=== PATIENT | male | born 1965 | race African-American/Black ===

== ENCOUNTER 2019-10-04 09:51 | Emergency (ER) | payer SELFPAY ==
[~2019-10-04] VITALS: Ht 188 cm; Wt 109.0 kg
[~2019-10-04 09:51] MED LIST: AMLO10TA8 PO; LISI-334 PO
[2019-10-04] MEDS ORDERED: ONDANSETRON PF 4 MG/2 ML VIAL. IVP ONE (10:30)
[2019-10-04] MEDS ORDERED: IV NORMAL SALINE 1000ML BAG 1,000 ML IV ONE ×3 (10:30→12:15)
[2019-10-04] MEDS ORDERED: ACETAMINOPHEN 500 MG TABLET PO ONE (10:30)
[2019-10-04 10:52] LABS: CALCIUM 8.7 mg/dL (8.5-10.1); CREATININE 1.4 mg/dL (0.7-1.3); GFR 63.9; POTASSIUM 3.3 mmol/L (3.5-5.1)
[2019-10-04 10:58] LABS: ALBUMIN 3.5 g/dL (3.4-5.0); ALBUMIN/GLOBULIN RATIO 0.7 (1.0-1.7); TOTAL PROTEIN 8.3 g/dL (6.4-8.2)
[2019-10-04 10:59] LABS: BASO % 0 % (0-3); EOS % 0 % (0-3); HEMATOCRIT 44.2 % (39.0-53.0); LYMPH # 0.7 x10^3/uL (1.0-4.8); LYMPH % 5 % (24-48); MEAN CORPUSCULAR HEMOGLOBIN 28 pg (25-35); MEAN CORPUSCULAR HGB CONC 34 g/dL (31-37); MEAN CORPUSCULAR VOLUME 84 fL (79-100); MONO # 1.6 x10^3/uL (0.0-1.1); MONO % 10 % (0-9); NEUT # 14.3 x10^3/uL (1.8-7.7); NEUT % 86 % (31-73); PLATELET COUNT 116 x10^3/uL (140-400); RED BLOOD COUNT 5.29 x10^6/uL (4.30-5.70); RED CELL DISTRIBUTION WIDTH 15.1 % (11.5-14.5); WHITE BLOOD COUNT 16.6 x10^3/uL (4.0-11.0)
[2019-10-04 11:45] LABS: % LYMPHS 11 % (24-48); % MONOS 8 % (0-10); % SEGS 81 % (35-66)
[2019-10-04 11:46] LABS: PLT ESTIMATE DECREASED (ADEQUATE)
[2019-10-04 12:15] LABS: BILIRUBIN,URINE SMALL (NEG); CLARITY,URINE CLEAR; COLOR,URINE AMBER; NITRITE,URINE NEGATIVE (NEG); PH,URINE 5.5 (<5.0-8.0); PROTEIN,URINE 100 mg/dL (NEG-TRACE)
[2019-10-04] MEDS ORDERED: IOHEXOL 300 MG/ML 100ML VIAL. IV ONE (12:15)
[2019-10-04] MEDS ORDERED: CONTRAST GIVEN. MC PRN (12:15)
[2019-10-04 12:22] LABS: AMORPHOUS SEDIMENT,UR PRESENT /HPF; BACTERIA,URINE 0 /HPF (0-FEW); HYALINE CASTS, URINE OCCASIONAL /HPF; RBC,URINE 0 /HPF (0-2); SQUAMOUS EPITHELIAL CELL,UR OCC /LPF
--- NOTE | 2019-10-04 12:42 | RAD ---
CT abdomen and pelvis with contrast History: Abdominal pain, nausea and vomiting, fever Technique: After the administration of intravenous contrast, CT imaging was performed of the abdomen and pelvis. No oral contrast was given. Multiplanar images are reviewed. Exposure: One or more of the following individualized dose reduction techniques were utilized for this examination: 1. Automated exposure control 2. Adjustment of the mA and/or kV according to patient size 3. Use of iterative reconstruction technique. Comparison: April 09, [address], no previous abdomen pelvis CT available Findings: Not completely evaluated, there is prominent infiltrate of the visualized right lower lobe abutting the pleural surface. There is trace right pleural fluid. There are splenic granulomas. There is small hypodense lesion of the left lobe of the liver about 0.7 cm not apparent on previous exam, density measurements more cystlike about 10 Hounsfield units on coronal images. There are a couple of other tiny hypodense foci of the right lobe of liver too small to accurately characterize. Gallbladder is present, nonspecific contracted appearance. There is no adrenal nodularity. Both kidneys enhance, no hydronephrosis. There is a small 0.6 cm hypodense lesion of the superior right kidney too small to further accurately characterize. There is nonspecific circumferential prominence of the urinary bladder muñiz. Accurate evaluation of bowel is limited without oral contrast. There is air-fluid level in the cecum. Appendix caliber is borderline about 0.6 cm, no significant adjacent inflammatory-type change. Impression: 1. There is prominent lung infiltrate of the visualized right lower lobe not fully evaluated, also trace right pleural fluid. 2. There is small likely cyst of the left lobe of liver. There are couple of other small hypodense foci of the liver and also small focus of the superior right kidney too small to further accurately characterize. 3. There is nonspecific prominence of urinary bladder muñiz, could be due to incomplete distention unless there is clinical suspicion for cystitis. Electronically signed by: Juan Harris MD (10/04/2019 12:39 PM) [id number]
--- NOTE | 2019-10-04 13:03 | RAD ---
EXAM: CHEST AP ONLY 10/04/2019 12:33 PM CLINICAL INDICATION:Fever COMPARISON:Chest radiograph 04/09/2015 TECHNIQUE:AP upright view of the chest FINDINGS:The heart and mediastinum are normal. Lungs are well-expanded clear. No pleural effusion or pneumothorax. No acute osseous abnormality. IMPRESSION:Normal chest radiograph. Electronically signed by: Soila Shaw MD (10/04/2019 1:00 PM) [id number]
[2019-10-04] MEDS ORDERED: cefTRIAXone IV Push 1 GM VIAL. IVP ONE (14:00)
[2019-10-04] MEDS ORDERED: CEFD300C PO (14:37)
[2019-10-04 14:38] VITALS: BP 198/98
--- NOTE | 2019-10-04 14:38 | PHYS DOC ---
Past Medical History Past Medical History: Hypertension Past Surgical History: No Surgical History Smoking Status: Former Smoker Alcohol Use: Occasionally Drug Use: None Social History Narrative: LAST USE THURSDAY General Adult EDM: Chief Complaint: NAUSEA/VOMITING/DIARRHA HPI: HPI: Patient is a 54 year old was brought here by EMS due to nausea, vomiting, diarrhea, abdominal cramping and headache since Thursday morning. Patient said he went to the [employer] on Thursday night, ate some chicken there, thought that he has food poisoning. He also developed a fever. He has some dry cough for several days, no chest pain, no shortness of air. Patient said the diarrhea slowed down but still feel cramping. Review of Systems: Review of Systems: Constitutional: Positive for fever or chills. [] Eyes: Denies change in visual acuity. [] HENT: Denies nasal congestion or sore throat. [] Respiratory: POSITIVE FOR cough, NO shortness of breath. [] Cardiovascular: Denies chest pain or edema. [] GI: POSITIVE FOR abdominal pain, nausea, vomiting, diarrhea. [] : Denies dysuria. [] Musculoskeletal: Denies back pain or joint pain. [] Integument: Denies rash. [] Neurologic: POSITIE FOR headache, NO focal weakness or sensory changes. [] Endocrine: Denies polyuria or polydipsia. [] Lymphatic: Denies swollen glands. [] Psychiatric: Denies depression or anxiety. [] Heart Score: Risk Factors: Risk Factors: DM, Current or recent (<one month) smoker, HTN, HLP, family history of CAD, obesity. Risk Scores: Score 0 - 3: 2.5% MACE over next 6 weeks - Discharge Home Score 4 - 6: 20.3% MACE over next 6 weeks - Admit for Clinical Observation Score 7 - 10: 72.7% MACE over next 6 weeks - Early Invasive Strategies Current Medications: Current Medications Medications (Trade) Dose Ordered Sig/Susu Start Time Stop Time Status Last Admin Dose Admin Acetaminophen (Tylenol) 1,000 mg 1X ONCE 10/04/19 10:30 10/04/19 10:33 DC 10/04/19 10:59 1,000 MG Ceftriaxone Sodium (Rocephin) 2 gm 1X ONCE 10/04/19 14:00 10/04/19 14:01 DC 10/04/19 13:55 2 GM Info (CONTRAST GIVEN -- Rx MONITORING) 1 each PRN DAILY PRN 10/04/19 12:15 10/06/19 12:14 Iohexol (Omnipaque 300 Mg/ml) 75 ml 1X ONCE 10/04/19 12:15 10/04/19 12:16 DC 10/04/19 12:07 75 ML Ondansetron HCl (Zofran) 4 mg 1X ONCE 10/04/19 10:30 10/04/19 10:31 DC 10/04/19 10:58 4 MG Sodium Chloride 1,000 ml @ 1,000 mls/hr 1X ONCE 10/04/19 12:15 10/04/19 13:14 DC Allergies: Allergies: Allergies Coded Allergies Type Severity Reaction Last Updated Verified ibuprofen Allergy Intermediate rash 04/09/15 Yes Physical Exam: PE: Constitutional: Well developed, well nourished, no acute distress, non-toxic appearance. [] HENT: Normocephalic, atraumatic, bilateral external ears normal, oropharynx moist, no oral exudates, nose normal. [] Eyes: PERRLA, EOMI, conjunctiva normal, no discharge. [] Neck: Normal range of motion, no tenderness, supple, no stridor. [] Cardiovascular:RAPID HEART rate regular rhythm, no murmur [] Lungs & Thorax: Bilateral breath sounds clear to auscultation [] Abdomen: Bowel sounds normal, soft, no tenderness, no masses, no pulsatile masses. [] Skin: Warm, dry, no erythema, no rash. [] Back: No tenderness, no CVA tenderness. [] Extremities: No tenderness, no cyanosis, no clubbing, ROM intact, no edema. [] Neurologic: Alert and oriented X 3, normal motor function, normal sensory function, no focal deficits noted. [] Psychologic: Affect normal, judgement normal, mood normal. [] Current Patient Data: Labs: Laboratory Tests Test 10/04/19 10:23 10/04/19 12:00 White Blood Count 16.6 x10^3/uL (4.0-11.0) H Red Blood Count 5.29 x10^6/uL (4.30-5.70) Hemoglobin 15.0 g/dL (13.0-17.5) Hematocrit 44.2 % (39.0-53.0) Mean Corpuscular Volume 84 fL (79-100) Mean Corpuscular Hemoglobin 28 pg (25-35) Mean Corpuscular Hemoglobin Concent 34 g/dL (31-37) Red Cell Distribution Width 15.1 % (11.5-14.5) H Platelet Count 116 x10^3/uL (140-400) L Neutrophils (%) (Auto) 86 % (31-73) H Lymphocytes (%) (Auto) 5 % (24-48) L Monocytes (%) (Auto) 10 % (0-9) H Eosinophils (%) (Auto) 0 % (0-3) Basophils (%) (Auto) 0 % (0-3) Neutrophils # (Auto) 14.3 x10^3/uL (1.8-7.7) H Lymphocytes # (Auto) 0.7 x10^3/uL (1.0-4.8) L Monocytes # (Auto) 1.6 x10^3/uL (0.0-1.1) H Eosinophils # (Auto) 0.0 x10^3/uL (0.0-0.7) Basophils # (Auto) 0.0 x10^3/uL (0.0-0.2) Segmented Neutrophils % 81 % (35-66) H Lymphocytes % 11 % (24-48) L Monocytes % 8 % (0-10) Platelet Estimate Decreased (ADEQUATE) Sodium Level 131 mmol/L (136-145) L Potassium Level 3.3 mmol/L (3.5-5.1) L Chloride Level 96 mmol/L (98-107) L Carbon Dioxide Level 28 mmol/L (21-32) Anion Gap 7 (6-14) Blood Urea Nitrogen 14 mg/dL (8-26) Creatinine 1.4 mg/dL (0.7-1.3) H Estimated GFR (Cockcroft-Gault) 63.9 BUN/Creatinine Ratio 10 (6-20) Glucose Level 148 mg/dL (70-99) H Lactic Acid Level 1.7 mmol/L (0.4-2.0) Calcium Level 8.7 mg/dL (8.5-10.1) Total Bilirubin 1.0 mg/dL (0.2-1.0) Aspartate Amino Transferase (AST) 25 U/L (15-37) Alanine Aminotransferase (ALT) 14 U/L (16-63) L Alkaline Phosphatase 61 U/L (46-116) Total Protein 8.3 g/dL (6.4-8.2) H Albumin 3.5 g/dL (3.4-5.0) Albumin/Globulin Ratio 0.7 (1.0-1.7) L Lipase 94 U/L (73-393) Urine Collection Type Unknown Urine Color [place] Urine Clarity Clear Urine pH 5.5 (<5.0-8.0) Urine Specific [place] 1.025 (1.000-1.030) Urine Protein 100 mg/dL (NEG-TRACE) Urine Glucose (UA) Negative mg/dL (NEG) Urine Ketones (Stick) Trace mg/dL (NEG) Urine Blood Negative (NEG) Urine Nitrite Negative (NEG) Urine Bilirubin Small (NEG) Urine Urobilinogen Dipstick 1.0 mg/dL (0.2 mg/dL) Urine Leukocyte Esterase Small (NEG) Urine RBC 0 /HPF (0-2) Urine WBC 1-4 /HPF (0-4) Urine Squamous Epithelial Cells Occ /LPF Urine Amorphous Sediment Present /HPF Urine Bacteria 0 /HPF (0-FEW) Urine Hyaline Casts Occasional /HPF Urine Mucus Mod /LPF Laboratory Tests 10/04/19 10:23 Laboratory Tests 10/04/19 10:23 Vital Signs: Vital Signs Date Time Temp Pulse Resp B/P (MAP) Pulse Ox O2 Delivery O2 Flow Rate FiO2 10/04/19 12:38 90 18 172/90 (117) 96 Room Air 10/04/19 10:12 103.2 103.2 EKG: EKG: [] Radiology/Procedures: Radiology/Procedures: [facility] [address] [place] [address] IMAGING REPORT Signed PATIENT: MEL SAMPSON ACCOUNT: [id number] : 1965 LOCATION: ER AGE: 54 SEX: M EXAM STATUS: REG ER ORD. PHYSICIAN: DEBBIE OLIVA DO REASON: abdominal pain, nausea, vomiting, fever PROCEDURE: CT ABD PELV W/ IV CONTRST ONLY CT abdomen and pelvis with contrast History: Abdominal pain, nausea and vomiting, fever Technique: After the administration of intravenous contrast, CT imaging was performed of the abdomen and pelvis. No oral contrast was given. Multiplanar images are reviewed. Exposure: One or more of the following individualized dose reduction techniques were utilized for this examination: 1. Automated exposure control 2. Adjustment of the mA and/or kV according to patient size 3. Use of iterative reconstruction technique. Comparison: April 09, [address], no previous abdomen pelvis CT available Findings: Not completely evaluated, there is prominent infiltrate of the visualized right lower lobe abutting the pleural surface. There is trace right pleural fluid. There are splenic granulomas. There is small hypodense lesion of the left lobe of the liver about 0.7 cm not apparent on previous exam, density measurements more cystlike about 10 Hounsfield units on coronal images. There are a couple of other tiny hypodense foci of the right lobe of liver too small to accurately characterize. Gallbladder is present, nonspecific contracted appearance. There is no adrenal nodularity. Both kidneys enhance, no hydronephrosis. There is a small 0.6 cm hypodense lesion of the superior right kidney too small to further accurately characterize. There is nonspecific circumferential prominence of the urinary bladder muñiz. Accurate evaluation of bowel is limited without oral contrast. There is air-fluid level in the cecum. Appendix caliber is borderline about 0.6 cm, no significant adjacent inflammatory-type change. Impression: 1. There is prominent lung infiltrate of the visualized right lower lobe not fully evaluated, also trace right pleural fluid. 2. There is small likely cyst of the left lobe of liver. There are couple of other small hypodense foci of the liver and also small focus of the superior right kidney too small to further accurately characterize. 3. There is nonspecific prominence of urinary bladder muñiz, could be due to incomplete distention unless there is clinical suspicion for cystitis. Electronically signed by: Danielle Durand MD (10/04/2019 12:39 PM) [id number] DICTATED and SIGNED BY: DANIELLE DURAND MD DATE: 10/04/19 1239 [] [facility] [address] [place] [address] IMAGING REPORT Signed PATIENT: MEL SAMPSON ACCOUNT: [id number] : 1965 LOCATION: ER AGE: 54 SEX: M EXAM STATUS: REG ER ORD. PHYSICIAN: DEBBIE OLIVA DO REASON: fever PROCEDURE: CHEST AP ONLY EXAM: CHEST AP ONLY 10/04/2019 12:33 PM CLINICAL INDICATION:Fever COMPARISON:Chest radiograph 04/09/2015 TECHNIQUE:AP upright view of the chest FINDINGS:The heart and mediastinum are normal. Lungs are well-expanded clear. No pleural effusion or pneumothorax. No acute osseous abnormality. IMPRESSION:Normal chest radiograph. Electronically signed by: Soila Shaw MD (10/04/2019 1:00 PM) [id number] DICTATED and SIGNED BY: SOILA SHAW MD DATE: 10/04/19 1300 Course & Med Decision Making: Course & Med Decision Making Pertinent Labs and Imaging studies reviewed. (See chart for details) [] Dragon Disclaimer: Dragon Disclaimer: This electronic medical record was generated, in whole or in part, using a voice recognition dictation system. Departure Departure Impression: Primary Impression: Pneumonia Additional Impressions: Suspected 2019-nCoV infection Fever Urinary tract infection Diarrhea Disposition: HOME, SELF-CARE Condition: IMPROVED Referrals: NO PCP (PCP) PLEASE CALL YOUR DOCTOR FOR FOLLOW UP IN 2 DAYS Patient Instructions: Fever, Pneumonia, Adult, Urinary Tract Infection Additional Instructions: Thank you for visiting [facility]. We appreciate you trusting us with your care. If any additional problems come up please don't hesitate to return to visit us. Follow up with your primary care provider so they can plan additional care if needed and know about the problem that you had today. If symptoms worsen come back to the Emergency Department. Any concerning symptoms that start such as chest pain, shortness of air, weakness or numbness on one side of the body, running high fevers or any other concerning symptoms return to the ER. You have a viral syndrome which may include symptoms like muscle aches, fevers, chills, runny nose, cough, sneezing, sore throat, nausea, vomiting, or diarrhea. One of the potential viruses that you may have is SARS-CoV-2, the virus that causes COVID-19, also known as the Coronavirus. You are just as likely to have a different viral infection such as the common cold, flu, etc. Most patients with the Coronavirus have mild symptoms and recover on their own. Resting, staying hydrated, and sleep based on known cases can be helpful. As of todays visit, you are well enough to go home and treat your symptoms with oral fluids and over the counter medications. Coronavirus testing is not performed on most people with mild symptoms who are being discharged from the emergency department. If Coronavirus testing was performed today the results will not be available for possibly up to 3-4 days. If your result is positive you will be contacted. Please follow the following precautions at home: 1. Stay home except to get medical care. 2. As advised by the CDC, we recommend that you stay in your home and minimize contact with other people. We do not want you to spread the infection. 3. Those who are older or have significant medical issues may have more severe symptoms from this infection. We recommend self-isolation FOR AT LEAST 7 DAYS after your 1st day of symptoms. AFTER you feel better please wait AT LEAST ANOTHER WEEK before returning to regular activities and being around other people. 4. IF you become sicker and have difficulty breathing, chest pain, are unable to eat/drink, severe vomiting, diarrhea, or weakness you may need to return to the Emergency Department. 5. You should restrict activities outside of your home, except for getting med ical care. DO NOT go to work, school, or public areas. Avoid using public transportation, ride sharing, or taxis. 6. Separate yourself from other people in your home. You should use a separate bathroom if possible. 7. Avoid sharing personal household items such as dishes, cups, eating utensils, towels, etc. 8. Clean all high touch surfaces every day (door knobs, counter tops, etc). Use a household cleaning spray or wipe per label instructions. 9. Clean your hands often. Wash your hands with soap and water for at least 20 seconds. 10. Cover your mouth and nose when you cough or sneeze. 11. Throw used tissues in the trash and immediately wash your hands. For additional resources please visit the CDC website or the [place] Department of Health ([phone]). Scripts Cefdinir (CEFDINIR) 300 Mg Capsule 1 CAP PO BID for 10 Days, #20 CAP Prov: DEBBIE OLIVA DO 10/04/19 Justicifation of Admission Dx: Justifications for Admission: Justification of Admission Dx: N/A DEBBIE OLIVA DO Oct 04, 2019 14:37
[2019-10-04] MEDS ORDERED: POTASSIUM CHLORIDE 20 MEQ TABLET.ER. PO ONE (15:00)
== END 2019-10-04 15:13 | disposition home or self-care (01) ==
LOC: ER 09:51
DX: J18.9 Pneumonia, unspecified organism (principal); Z20.828 Contact with and (suspected) exposure to other viral communicable diseases; N39.0 Urinary tract infection, site not specified; R19.7 Diarrhea, unspecified; I10 Essential (primary) hypertension; Z87.891 Personal history of nicotine dependence; Z88.8 Allergy status to other drugs, medicaments and biological substances
CPT/HCPCS: 36415; 71045; 74177; 80053; 81001; 83605; 83690; 85007; 85025; 87040; 87086; 96361; 96374; 96375; 99285; J0696; J2405; J7030; Q9967; U0003

== ENCOUNTER 2020-05-30 17:17 | Observation (INO) | payer BC, OTHER ==
[~2020-05-30] VITALS: Ht 188 cm; Wt 90.9 kg
[~2020-05-30 17:17] MED LIST changes: +AMLO-187 PO; -AMLO10TA8 PO; +CEFD300C PO; -LISI-334 PO; +LISI20TA18 PO
--- NOTE | 2020-05-30 18:22 | RAD ---
INDICATION: Reason: chest pain / Spl. Instructions: / History: COMPARISON: October 04, 2019 FINDINGS: Single view of chest obtained. No focal airspace consolidation. Cardiac silhouette is unremarkable. No gross osseous destructive lesion. IMPRESSION: * No focal airspace consolidation or edema. Electronically signed by: Brannon Clark MD (05/30/2020 6:19 PM) [id number]
[2020-05-30 18:27] LABS: BASO # 0.1 x10^3/uL (0.0-0.2); BASO % 1 % (0-3); EOS # 0.1 x10^3/uL (0.0-0.7); EOS % 2 % (0-3); HEMATOCRIT 44.6 % (39.0-53.0); HEMOGLOBIN 14.7 g/dL (13.0-17.5); LYMPH # 1.9 x10^3/uL (1.0-4.8); LYMPH % 28 % (24-48); MEAN CORPUSCULAR HEMOGLOBIN 28 pg (25-35); MEAN CORPUSCULAR HGB CONC 33 g/dL (31-37); MEAN CORPUSCULAR VOLUME 84 fL (79-100); MONO # 0.4 x10^3/uL (0.0-1.1); MONO % 6 % (0-9); NEUT # 4.3 x10^3/uL (1.8-7.7); NEUT % 63 % (31-73); PLATELET COUNT 215 x10^3/uL (140-400); RED BLOOD COUNT 5.33 x10^6/uL (4.30-5.70); RED CELL DISTRIBUTION WIDTH 14.9 % (11.5-14.5); WHITE BLOOD COUNT 6.8 x10^3/uL (4.0-11.0)
[2020-05-30 18:32] LABS: BILIRUBIN,URINE NEGATIVE (NEG); CLARITY,URINE CLEAR; COLOR,URINE YELLOW; NITRITE,URINE NEGATIVE (NEG); PROTEIN,URINE NEGATIVE (NEG-TRACE)
--- NOTE | 2020-05-30 18:36 | ED.ADGEN ---
Past Medical History Past Medical History: Hypertension Past Surgical History: No Surgical History Smoking Status: Former Smoker Alcohol Use: Occasionally Drug Use: None General Adult EDM: Chief Complaint: CHEST PAIN HPI: HPI: Patient is a 55 year old AA male, coming by his , who presents emergency department with complaints of midsternal chest pain that radiates through to his back since yesterday afternoon. Patient denies any alleviating factors, he states that the pain seems to increase after he eats sometimes. He denies any change in the pain with position changes. He denies any nausea, vomiting, diarrhea, abdominal pain, fever, cough, shortness of breath, diaphoresis, dizziness, headache, or syncope. Patient reports a history of high blood pressure but states he has not been taking his blood pressure medication for over a year. Patient states he currently does not have a primary care doctor. He denies any vision changes, numbness, tingling, or weakness. The patient d enies taking any aspirin prior to arrival. He currently rates the pain a 7 out of 10 on the pain scale, he denies any alleviating factors, he reports that the pain has been constant. Review of Systems: Review of Systems: Complete ROS is negative unless otherwise noted in HPI. Current Medications: Current Medications Medications (Trade) Dose Ordered Sig/Susu Start Time Stop Time Status Last Admin Dose Admin Aspirin (Vivek Aspirin) 325 mg 1X ONCE 05/30/20 19:00 05/30/20 19:01 DC 05/30/20 18:47 325 MG Nitroglycerin (Nitrostat) 0.4 mg PRN Q5MIN PRN 05/30/20 18:30 05/30/20 19:05 0.4 MG Allergies: Allergies: Allergies Coded Allergies Type Severity Reaction Last Updated Verified ibuprofen Allergy Intermediate rash 04/09/15 Yes Physical Exam: PE: See Above Constitutional: Well developed, well nourished, no acute distress, non-toxic appearance. [] HENT: Normocephalic, atraumatic, bilateral external ears normal, nose normal. [] Eyes: PERRLA, EOMI, conjunctiva normal, no discharge. [] Neck: Normal range of motion, no stridor. [] Cardiovascular:Heart rate regular rhythm, midsternal tenderness to palpation without crepitus or deformity Lungs & Thorax: Respirations even and unlabored, no retractions, no respiratory distress Abdomen: soft, no tenderness Skin: Warm, dry, no erythema, no rash. [] Extremities: No cyanosis, ROM intact, no edema. [] Neurologic: Alert and oriented X 3, no focal deficits noted. [] Psychologic: Affect normal, judgement normal, mood normal. [] Current Patient Data: Labs: Laboratory Tests Test 05/30/20 18:15 05/30/20 18:20 White Blood Count 6.8 x10^3/uL (4.0-11.0) Red Blood Count 5.33 x10^6/uL (4.30-5.70) Hemoglobin 14.7 g/dL (13.0-17.5) Hematocrit 44.6 % (39.0-53.0) Mean Corpuscular Volume 84 fL (79-100) Mean Corpuscular Hemoglobin 28 pg (25-35) Mean Corpuscular Hemoglobin Concent 33 g/dL (31-37) Red Cell Distribution Width 14.9 % (11.5-14.5) H Platelet Count 215 x10^3/uL (140-400) Neutrophils (%) (Auto) 63 % (31-73) Lymphocytes (%) (Auto) 28 % (24-48) Monocytes (%) (Auto) 6 % (0-9) Eosinophils (%) (Auto) 2 % (0-3) Basophils (%) (Auto) 1 % (0-3) Neutrophils # (Auto) 4.3 x10^3/uL (1.8-7.7) Lymphocytes # (Auto) 1.9 x10^3/uL (1.0-4.8) Monocytes # (Auto) 0.4 x10^3/uL (0.0-1.1) Eosinophils # (Auto) 0.1 x10^3/uL (0.0-0.7) Basophils # (Auto) 0.1 x10^3/uL (0.0-0.2) D-Dimer (Camilla) 0.44 ug/mlFEU (0.00-0.50) Sodium Level 140 mmol/L (136-145) Potassium Level 3.4 mmol/L (3.5-5.1) L Chloride Level 103 mmol/L (98-107) Carbon Dioxide Level 30 mmol/L (21-32) Anion Gap 7 (6-14) Blood Urea Nitrogen 11 mg/dL (8-26) Creatinine 1.2 mg/dL (0.7-1.3) Estimated GFR (Cockcroft-Gault) 76.1 BUN/Creatinine Ratio 9 (6-20) Glucose Level 97 mg/dL (70-99) Calcium Level 9.3 mg/dL (8.5-10.1) Magnesium Level 2.3 mg/dL (1.8-2.4) Total Bilirubin 0.5 mg/dL (0.2-1.0) Aspartate Amino Transferase (AST) 20 U/L (15-37) Alanine Aminotransferase (ALT) 22 U/L (16-63) Alkaline Phosphatase 69 U/L (46-116) Creatine Kinase 248 U/L (39-308) Creatine Kinase MB (Mass) 1.8 ng/mL (0.0-3.6) Creatine Kinase MB Relative Index 0.7 % (0-4) Troponin I Quantitative < 0.017 ng/mL (0.000-0.055) LG-Gsl-F-Type Natriuretic Peptide 294 pg/mL (0-124) H Total Protein 7.8 g/dL (6.4-8.2) Albumin 3.7 g/dL (3.4-5.0) Albumin/Globulin Ratio 0.9 (1.0-1.7) L Lipase 64 U/L (73-393) L Urine Collection Type Void Urine Color Yellow Urine Clarity Clear Urine pH 6.0 (<5.0-8.0) Urine Specific [place] 1.020 (1.000-1.030) Urine Protein Negative mg/dL (NEG-TRACE) Urine Glucose (UA) Negative mg/dL (NEG) Urine Ketones (Stick) Negative mg/dL (NEG) Urine Blood Negative (NEG) Urine Nitrite Negative (NEG) Urine Bilirubin Negative (NEG) Urine Urobilinogen Dipstick 1.0 mg/dL (0.2 mg/dL) Urine Leukocyte Esterase Negative (NEG) Urine RBC 0 /HPF (0-2) Urine WBC 1-4 /HPF (0-4) Urine Squamous Epithelial Cells Occ /LPF Urine Bacteria Few /HPF (0-FEW) Urine Mucus Marked /LPF Laboratory Tests 05/30/20 18:15 Laboratory Tests 05/30/20 18:15 Vital Signs: Vital Signs Date Time Temp Pulse Resp B/P (MAP) Pulse Ox O2 Delivery O2 Flow Rate FiO2 05/30/20 19:05 69 192/108 05/30/20 17:30 98.0 18 99 Room Air 98.0 EKG: EK-rhythm rate 74, no STEMI, read by Dr. Cunningham [] Heart Score: HEART Score for Chest Pain: HEART Score for Chest Pain Response (Comments) Value History Slighlty/Non-Suspicious 0 ECG Normal 0 Age >45 - < 65 1 Risk Factors >3 Risk Factors or Hx CAD 2 Troponin < Normal Limit 0 Total 3 Risk Factors: Risk Factors: DM, Current or recent (<one month) smoker, HTN, HLP, family history of CAD, obesity. Risk Scores: Score 0 - 3: 2.5% MACE over next 6 weeks - Discharge Home Score 4 - 6: 20.3% MACE over next 6 weeks - Admit for Clinical Observation Score 7 - 10: 72.7% MACE over next 6 weeks - Early Invasive Strategies Radiology/Procedures: Radiology/Procedures: PROCEDURE: CHEST AP ONLY INDICATION: Reason: chest pain / Spl. Instructions: / History: COMPARISON: October 04, 2019 FINDINGS: Single view of chest obtained. No focal airspace consolidation. Cardiac silhouette is unremarkable. No gross osseous destructive lesion. IMPRESSION: * No focal airspace consolidation or edema.[] Course & Med Decision Making: Course & Med Decision Making Pertinent Labs and Imaging studies reviewed. (See chart for details) 1919-spoke with Dr. Manriquez who is the admitting physician, and care was assumed following discussion of patient. Will admit patient for chest pain and hypertensive urgency, will initiate chest pain order set Patient's vital signs stable. Patient remains afebrile, appears nontoxic, respirations even and unlabored. Patient will be admitted to the CVC floor. Patient's case and plan of care also discussed with Dr. CARMONA [] Agustín Disclaimer: Agustín Disclaimer: This electronic medical record was generated, in whole or in part, using a voice recognition dictation system. Departure Departure Impression: Primary Impression: Chest pain Disposition: ADMITTED INPT THIS HOSP Admitting Physician: ARMANDO Canales) Condition: STABLE Referrals: NO PCP (PCP) MARIAA BALDERRAMA PRODUCT DEVELOPMENT TECHNICIAN May 30, 2020 18:36
[2020-05-30 18:37] LABS: CALCIUM 9.3 mg/dL (8.5-10.1); CREATININE 1.2 mg/dL (0.7-1.3); GFR 76.1; POTASSIUM 3.4 mmol/L (3.5-5.1)
[2020-05-30 18:38] LABS: BACTERIA,URINE FEW /HPF (0-FEW)
[2020-05-30 18:39] LABS: RBC,URINE 0 /HPF (0-2)
[2020-05-30 18:42] LABS: ALBUMIN 3.7 g/dL (3.4-5.0); ALBUMIN/GLOBULIN RATIO 0.9 (1.0-1.7); MAGNESIUM 2.3 mg/dL (1.8-2.4); TOTAL BILIRUBIN 0.5 mg/dL (0.2-1.0); TOTAL PROTEIN 7.8 g/dL (6.4-8.2)
[2020-05-30] MEDS: NITROGLYCERIN SUBLINGUAL 0.4 MG BOTTLE OF 25. SL PRN ×2 (18:49→19:05)
[2020-05-30] MEDS ORDERED: ASPIRIN 325 MG TABLET PO ONE (19:00)
--- NOTE | 2020-05-30 19:28 | PDOC1 ---
History and Physical Date of Admission Date of Admission DATE: 05/30/20 TIME: 19:27 Identification/Chief Complaint Chief Complaint Chest pain Source Source: Patient History of Present Illness History of Present Illness Mr Sanford is a 55 yo male w/ PMHx HTN coming to ED accompanied by his c/o central, substernal chest pain starting 05/29/20 in the middle of the day. He did think it was food related, but it returned long after mealtime and he did have some associated nausea and headache. Pain did not radiate, is described as a pressure sensation and he has not been able to find relief, but nothing worsens it either. 11/03, mostly constant now. He did have relief in ED after NTG and ASA administration, though his headache worsened. He denies any nausea, vomiting, diarrhea, abdominal pain, fever, cough, shortness of breath, diaphoresis, dizziness, or recent sick contacts. Previously he was taking lisinopril and HCTZ, but he has not been taking his blood pressure medication for over a year due to insurance and employment change. EKG NSR with rate 74, no STEMI, BP 211/123. Labs with CBC within normal limits, troponin 0, d dimer 0.44 (negative). K 3.4, Na 140, Cr 1.2, BUN 11, glucose 97 Admitted for further treatment of hypertensive crisis. Past Medical History Cardiovascular: HTN Pulmonary: No pertinent hx GI: No pertinent hx Heme/Onc: No pertinent hx Hepatobiliary: No pertinent hx Psych: No pertinent hx Musculoskeletal: low back pain Rheumatologic: No pertinent hx Past Surgical History Past Surgical History: No pertinent history Family History Family History: Hypertension, Stroke Social History Smoke: No ALCOHOL: none Drugs: None Current Medications Current Medications Current Medications Nitroglycerin (Nitrostat) 0.4 mg PRN Q5MIN PRN SL CHEST PAIN Last administered on 05/30/20at 19:05; Start 05/30/20 at 18:30 Aspirin (Vivek Aspirin) 325 mg 1X ONCE PO Last administered on 05/30/20at 18:47; Start 05/30/20 at 19:00; Stop 05/30/20 at 19:01; Status DC Active Scripts Active Cefdinir 300 Mg Capsule 1 Cap PO BID 10 Days Lisinopril 20 Mg Tablet 20 Mg PO DAILY Amlodipine Besylate 10 Mg Tablet 10 Mg PO DAILY Allergies Allergies: Coded Allergies: ibuprofen (Verified Allergy, Intermediate, rash, 04/09/15) ROS General: YES: Fatigue, Malaise; No: Chills, Night Sweats, Appetite, Other PSYCHOLOGICAL ROS: No: Anxiety, Behavioral Disorder, Concentration difficultie, Decreased libido, Depression, Disorientation, Hallucinations, Hostility, Irritablity, Memory difficulties, Mood Swings, Obsessive thoughts, Physical abuse, Sexual abuse, Sleep disturbances, Suicidal ideation, Other Eyes: No Blurry vision, No Decreased vision, No Double vision, No Dry eyes, No Excessive tearing, No Eye Pain, No Itchy Eyes, No Loss of vision, No Photophobia, No Scotomata, No Uses contacts, No Uses glasses, No Other HEENT: YES: Heacaches; No: Visual Changes, Hearing change, Nasal congestion, Nasal discharge, Oral lesions, Sinus pain, Sore Throat, Epistaxis, Sneezing, Snoring, Tinnitus, Vertigo, Vocal changes, Other ALLERGY AND IMMUNOLOGY: No: Hives, Insect Bite Sensitivity, Itchy/Watery Eyes, Nasal Congestion, Post Nasal Drip, Seasonal Allergies, Other Hematological and Lymphatic: No: Bleeding Problems, Blood Clots, Blood Transfusions, Brusing, Night Sweats, Pallor, Swollen Lymph Nodes, Other ENDOCRINE: No: Breast Changes, Galactorrhea, Hair Pattern Changes, Hot Flashes, Malaise/lethargy, Mood Swings, Palpitations, Polydipsia/polyuria, Skin Changes, Temperature Intolerance, Unexpected Weight Changes, Other Breast: No New/Changing Breast Lumps, No Nipple changes, No Nipple discharge, No Other Respiratory: No: Cough, Hemoptysis, Orthopnea, Pleuritic Pain, Shortness of breath, SOB with excertion, Sputum Changes, Stridor, Tachypnea, Wheezing, Other Cardiovascular: yes Chest Pain; No Palpitations, No Orthopnea, No Paroxysmal Noc. Dyspnea, No Edema, No Lt Headedness, No Other Gastrointestinal: Yes Nausea; No Vomiting, No Abdominal Pain, No Diarrhea, No Constipation, No Melena, No Hematochezia, No Other Genitourinary: No Dysuria, No Frequency, No Incontinence, No Hematuria, No Retention, No Discharge, No Urgency, No Pain, No Flank Pain, No Other, No , No , No , No , No , No , No Musculoskeletal: No Gait Disturbance, No Joint Pain, No Joint Stiffness, No Joint Swelling, No Muscle Pain, No Muscular Weakness, No Pain In:, No Swelling In:, No Other Neurological: No Behavorial Changes, No Bowel/Bladder ControlChng, No Confusion, No Dizziness, No Gait Disturbance, No Headaches, No Impaired Coord/balance, No Memory Loss, No Numbness/Tingling, No Seizures, No Speech Problems, No Tremors, No Visual Changes, No Weakness, No Other Skin: No Dry Skin, No Eczema, No Hair Changes, No Lumps, No Mole Changes, No Mottling, No Nail Changes, No Pruritus, No Rash, No Skin Lesion Changes, No Other, No Acne Physical Exam General: Alert, Oriented X3, Cooperative, mild distress HEENT: Atraumatic, PERRLA, EOMI, Mucous membr. moist/pink Lungs: Clear to auscultation, Normal air movement Heart: S1S2, RRR, no thrills, no rubs, no gallops, no murmurs Abdomen: Normal bowel sounds, Soft, No tenderness, No hepatosplenomegaly, No masses Rectal Exam: not examined Extremities: No clubbing, No cyanosis, No edema, Normal pulses, No tenderness/swelling Skin: No rashes, No breakdown, No significant lesion Neuro: Normal gait, Normal speech, Strength at 5/5 X4 ext, Normal tone, Sensation intact, Cranial nerves 3-12 NL, Reflexes 2+ Psych/Mental Status: Mental status NL, Mood NL Vitals Vitals Vital Signs Date Time Temp Pulse Resp B/P (MAP) Pulse Ox O2 Delivery O2 Flow Rate FiO2 05/30/20 19:05 69 192/108 Labs Labs Laboratory Tests Test 05/30/20 18:15 05/30/20 18:20 White Blood Count 6.8 x10^3/uL (4.0-11.0) Red Blood Count 5.33 x10^6/uL (4.30-5.70) Hemoglobin 14.7 g/dL (13.0-17.5) Hematocrit 44.6 % (39.0-53.0) Mean Corpuscular Volume 84 fL (79-100) Mean Corpuscular Hemoglobin 28 pg (25-35) Mean Corpuscular Hemoglobin Concent 33 g/dL (31-37) Red Cell Distribution Width 14.9 % (11.5-14.5) Platelet Count 215 x10^3/uL (140-400) Neutrophils (%) (Auto) 63 % (31-73) Lymphocytes (%) (Auto) 28 % (24-48) Monocytes (%) (Auto) 6 % (0-9) Eosinophils (%) (Auto) 2 % (0-3) Basophils (%) (Auto) 1 % (0-3) Neutrophils # (Auto) 4.3 x10^3/uL (1.8-7.7) Lymphocytes # (Auto) 1.9 x10^3/uL (1.0-4.8) Monocytes # (Auto) 0.4 x10^3/uL (0.0-1.1) Eosinophils # (Auto) 0.1 x10^3/uL (0.0-0.7) Basophils # (Auto) 0.1 x10^3/uL (0.0-0.2) D-Dimer (Camilla) 0.44 ug/mlFEU (0.00-0.50) Sodium Level 140 mmol/L (136-145) Potassium Level 3.4 mmol/L (3.5-5.1) Chloride Level 103 mmol/L (98-107) Carbon Dioxide Level 30 mmol/L (21-32) Anion Gap 7 (6-14) Blood Urea Nitrogen 11 mg/dL (8-26) Creatinine 1.2 mg/dL (0.7-1.3) Estimated GFR (Cockcroft-Gault) 76.1 BUN/Creatinine Ratio 9 (6-20) Glucose Level 97 mg/dL (70-99) Calcium Level 9.3 mg/dL (8.5-10.1) Magnesium Level 2.3 mg/dL (1.8-2.4) Total Bilirubin 0.5 mg/dL (0.2-1.0) Aspartate Amino Transf (AST/SGOT) 20 U/L (15-37) Alanine Aminotransferase (ALT/SGPT) 22 U/L (16-63) Alkaline Phosphatase 69 U/L (46-116) Creatine Kinase 248 U/L (39-308) Creatine Kinase MB (Mass) 1.8 ng/mL (0.0-3.6) Creatine Kinase MB Relative Index 0.7 % (0-4) Troponin I Quantitative < 0.017 ng/mL (0.000-0.055) IY-Wzo-V-Type Natriuretic Peptide 294 pg/mL (0-124) Total Protein 7.8 g/dL (6.4-8.2) Albumin 3.7 g/dL (3.4-5.0) Albumin/Globulin Ratio 0.9 (1.0-1.7) Lipase 64 U/L (73-393) Urine Collection Type Void Urine Color Yellow Urine Clarity Clear Urine pH 6.0 (<5.0-8.0) Urine Specific [place] 1.020 (1.000-1.030) Urine Protein Negative mg/dL (NEG-TRACE) Urine Glucose (UA) Negative mg/dL (NEG) Urine Ketones (Stick) Negative mg/dL (NEG) Urine Blood Negative (NEG) Urine Nitrite Negative (NEG) Urine Bilirubin Negative (NEG) Urine Urobilinogen Dipstick 1.0 mg/dL (0.2 mg/dL) Urine Leukocyte Esterase Negative (NEG) Urine RBC 0 /HPF (0-2) Urine WBC 1-4 /HPF (0-4) Urine Squamous Epithelial Cells Occ /LPF Urine Bacteria Few /HPF (0-FEW) Urine Mucus Marked /LPF Laboratory Tests Test 05/30/20 18:15 05/30/20 18:20 White Blood Count 6.8 x10^3/uL (4.0-11.0) Red Blood Count 5.33 x10^6/uL (4.30-5.70) Hemoglobin 14.7 g/dL (13.0-17.5) Hematocrit 44.6 % (39.0-53.0) Mean Corpuscular Volume 84 fL (79-100) Mean Corpuscular Hemoglobin 28 pg (25-35) Mean Corpuscular Hemoglobin Concent 33 g/dL (31-37) Red Cell Distribution Width 14.9 % (11.5-14.5) Platelet Count 215 x10^3/uL (140-400) Neutrophils (%) (Auto) 63 % (31-73) Lymphocytes (%) (Auto) 28 % (24-48) Monocytes (%) (Auto) 6 % (0-9) Eosinophils (%) (Auto) 2 % (0-3) Basophils (%) (Auto) 1 % (0-3) Neutrophils # (Auto) 4.3 x10^3/uL (1.8-7.7) Lymphocytes # (Auto) 1.9 x10^3/uL (1.0-4.8) Monocytes # (Auto) 0.4 x10^3/uL (0.0-1.1) Eosinophils # (Auto) 0.1 x10^3/uL (0.0-0.7) Basophils # (Auto) 0.1 x10^3/uL (0.0-0.2) D-Dimer (Camilla) 0.44 ug/mlFEU (0.00-0.50) Sodium Level 140 mmol/L (136-145) Potassium Level 3.4 mmol/L (3.5-5.1) Chloride Level 103 mmol/L (98-107) Carbon Dioxide Level 30 mmol/L (21-32) Anion Gap 7 (6-14) Blood Urea Nitrogen 11 mg/dL (8-26) Creatinine 1.2 mg/dL (0.7-1.3) Estimated GFR (Cockcroft-Gault) 76.1 BUN/Creatinine Ratio 9 (6-20) Glucose Level 97 mg/dL (70-99) Calcium Level 9.3 mg/dL (8.5-10.1) Magnesium Level 2.3 mg/dL (1.8-2.4) Total Bilirubin 0.5 mg/dL (0.2-1.0) Aspartate Amino Transf (AST/SGOT) 20 U/L (15-37) Alanine Aminotransferase (ALT/SGPT) 22 U/L (16-63) Alkaline Phosphatase 69 U/L (46-116) Creatine Kinase 248 U/L (39-308) Creatine Kinase MB (Mass) 1.8 ng/mL (0.0-3.6) Creatine Kinase MB Relative Index 0.7 % (0-4) Troponin I Quantitative < 0.017 ng/mL (0.000-0.055) CU-Eob-V-Type Natriuretic Peptide 294 pg/mL (0-124) Total Protein 7.8 g/dL (6.4-8.2) Albumin 3.7 g/dL (3.4-5.0) Albumin/Globulin Ratio 0.9 (1.0-1.7) Lipase 64 U/L (73-393) Urine Collection Type Void Urine Color Yellow Urine Clarity Clear Urine pH 6.0 (<5.0-8.0) Urine Specific [place] 1.020 (1.000-1.030) Urine Protein Negative mg/dL (NEG-TRACE) Urine Glucose (UA) Negative mg/dL (NEG) Urine Ketones (Stick) Negative mg/dL (NEG) Urine Blood Negative (NEG) Urine Nitrite Negative (NEG) Urine Bilirubin Negative (NEG) Urine Urobilinogen Dipstick 1.0 mg/dL (0.2 mg/dL) Urine Leukocyte Esterase Negative (NEG) Urine RBC 0 /HPF (0-2) Urine WBC 1-4 /HPF (0-4) Urine Squamous Epithelial Cells Occ /LPF Urine Bacteria Few /HPF (0-FEW) Urine Mucus Marked /LPF Images Images Chest radiograph: Single view of chest obtained. No focal airspace consolidation. Cardiac silhouette is unremarkable. No gross osseous destructive lesion. IMPRESSION: * No focal airspace consolidation or edema. VTE Prophylaxis Ordered VTE Prophylaxis Devices: No VTE Pharmacological Prophylaxi: No Assessment/Plan Assessment/Plan A/P: Chest pain - from hypertensive crisis, likely. D dimer r/o PE, no concern for aortic dissection. Will trend troponins, maintain telemetry. Cardiology consulted. Hypertensive emergency - with anginal symptoms, Will restart amlodipine, add hydralazine, prn labetalol Hypokalemia - will replace Headache - likely due to hypertensive emergency, worsened by nitrates FEN - Cardiac diet PPX - ambulatory FULL CODE Dispo - inpatient for hypertensive emergency with life-threateningly high diastolic BP requiring IV medication Justifications for Admission Other Justification TRINA BRICE MD May 30, 2020 19:28
[2020-05-30] MEDS ORDERED: hydrALAZINE 20 MG/ML VIAL. IVP ONE (20:00)
[2020-05-30] MEDS ORDERED: LABETALOL 20 MG/4 ML DISP.SYRIN. IVP PRN (22:00)
[2020-05-30] MEDS ORDERED: ACETAMINOPHEN 325 MG TABLET. PO PRN (22:00)
[2020-05-30] MEDS ORDERED: ZOLPIDEM 5 MG TABLET. PO PRN (22:00)
[2020-05-30] MEDS ORDERED: MAG HYDROX/ALUMINUM HYD/SIMETH 30 ML ORAL.SUSP PO PRN (22:00)
[2020-05-30] MEDS ORDERED: hydrALAZINE 20 MG/ML VIAL. IVP PRN (22:00)
[2020-05-30] MEDS ORDERED: DOCUSATE SODIUM 100 MG CAPSULE. PO PRN (22:00)
[2020-05-30] MEDS ORDERED: ONDANSETRON PF 4 MG/2 ML VIAL. IV PRN (22:00)
[2020-05-30] MEDS ORDERED: MORPHINE SULFATE 2 MG/ML VIAL. IV PRN (22:00)
[2020-05-30] MEDS ORDERED: POTASSIUM BICARB 20 MEQ EFFERVESCENT TABLET. PO ONE (22:45)
[2020-05-30 22:58] VITALS: BP 163/97
[2020-05-30] MEDS: hydrALAZINE 25 MG TABLET PO SCH (23:09)
[2020-05-31 02:57] VITALS: BP 162/102
[2020-05-31 06:46] LABS: CALCIUM 8.9 mg/dL (8.5-10.1); CREATININE 1.1 mg/dL (0.7-1.3); GFR 84.1; POTASSIUM 3.8 mmol/L (3.5-5.1)
[2020-05-31 07:00] VITALS: BP 179/110
[2020-05-31] MEDS ORDERED: ASPIRIN 325 MG TABLET PO SCH (08:00)
[2020-05-31 08:05] LABS: CHOLESTEROL/HDL RATIO 4.2
[2020-05-31] MEDS: hydrALAZINE 25 MG TABLET PO SCH (08:58)
[2020-05-31] MEDS ORDERED: amLODIPine BESYLATE 10 MG TABLET PO SCH (09:00)
--- NOTE | 2020-05-31 10:32 | PDOC2 ---
ELENA TREVIÑO FUNDRAISING DIRECTOR 05/31/20 1032: CARDIAC CONSULT DATE OF CONSULT Date of Consult DATE: 05/31/20 TIME: 09:58 REASON FOR CONSULT Reason for Consult: Chest pain, HTN urgency REFERRING PHYSICIAN Referring Physician: Breanne SOURCE Source: Chart review, Patient HISTORY OF PRESENT ILLNESS HISTORY OF PRESENT ILLNESS This is a pleasant 55 yo male admitted for complains of chest pain. Reports that this started Thursday and it was sharp and stabbing to left lower chest and radiating below the left scapula. No coughing, nausea or vomiting. Denies any fever, chills, anosmia or ageusia. No prior covid-19 exposure. Reports no exertiional SOA. No heartburn. 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 His CP continued on intermittently and yesterday it just painful that he had to stop working. He has not been taking any analgesic. He does have HTN and stopped taking his 1 BP med a yr and a half ago due to possible side effects and lost his insurance. No hx of CAD, VTE, depression, arrhythmias. Denies any palpitations, dizziness or stroke symptoms. He has been feeling fatigue lately as well. He uses marijuana but no other recreational drugs. PAST MEDICAL HISTORY Past Medical History HTN, Angioedema with NSAIDs PAST SURGICAL HISTORY Past Surgical History: No pertinent history FAMILY HISTORY Family History: Coronary Artery Disease (father) SOCIAL HISTORY Smoke: No ALCOHOL: rare Drugs: Marijuana Lives: Alone CURRENT MEDICATIONS CURRENT MEDICATIONS Current Medications Medications (Trade) Dose Ordered Sig/Susu Route PRN Reason Start Time Stop Time Status Last Admin Dose Admin Nitroglycerin (Nitrostat) 0.4 mg PRN Q5MIN PRN SL CHEST PAIN 05/30/20 18:30 05/30/20 19:05 Aspirin (Vivek Aspirin) 325 mg 1X ONCE PO 05/30/20 19:00 05/30/20 19:01 DC 05/30/20 18:47 Hydralazine HCl (Apresoline Inj) 10 mg 1X ONCE IVP 05/30/20 20:00 05/30/20 20:01 DC 05/30/20 20:01 Amlodipine Besylate (Norvasc) 10 mg DAILY PO 05/31/20 09:00 05/31/20 08:59 Hydralazine HCl (Apresoline) 25 mg TID PO 05/30/20 22:00 05/31/20 08:58 Labetalol HCl (Normodyne Iv Push) 10 mg PRN Q2HR PRN IVP HYPERTENSION-1ST CHOICE 05/30/20 22:00 05/31/20 03:11 Aspirin (Vivek Aspirin) 325 mg DAILYWBKFT PO 05/31/20 08:00 05/31/20 08:56 Potassium Bicarbonate (Potassium Effervescent Tablet) 20 meq 1X ONCE PO 05/30/20 22:45 05/30/20 22:46 DC 05/30/20 23:08 ALLERGIES ALLERGIES: Coded Allergies: lisinopril (Verified Allergy, Severe, Swelling, 05/31/20) ibuprofen (Verified Allergy, Intermediate, rash, 04/09/15) ROS Review of System 14 point ROS evaluated with pertinent positives noted per HPI PHYSICAL EXAM General: Alert, Oriented X3, Cooperative, No acute distress HEENT: Atraumatic, Mucous membr. moist/pink Lungs: Clear to auscultation, Normal air movement Heart: Regular rate (SR), Normal S1, Normal S2, No murmurs Abdomen: Soft, No tenderness Extremities: No cyanosis, No edema Skin: No breakdown, No significant lesion Neuro: Normal speech, Sensation intact Psych/Mental Status: Mental status NL, Mood NL MUSCULOSKELETAL: Osteoarthritic changes both hands VITALS/I&O VITALS/I&O: Vital Signs Date Time Temp Pulse Resp B/P (MAP) Pulse Ox O2 Delivery O2 Flow Rate FiO2 05/31/20 08:59 72 193/113 05/31/20 07:00 98.0 16 98 Room Air 98.0 I & O 05/30/20 05/30/20 05/31/20 15:00 23:00 07:00 Intake Total 0 ml 100 ml Balance 0 ml 100 ml LABS Lab: Laboratory Tests Test 05/30/20 18:15 05/30/20 18:20 05/30/20 23:40 05/31/20 05:57 White Blood Count 6.8 x10^3/uL (4.0-11.0) Red Blood Count 5.33 x10^6/uL (4.30-5.70) Hemoglobin 14.7 g/dL (13.0-17.5) Hematocrit 44.6 % (39.0-53.0) Mean Corpuscular Volume 84 fL (79-100) Mean Corpuscular Hemoglobin 28 pg (25-35) Mean Corpuscular Hemoglobin Concent 33 g/dL (31-37) Red Cell Distribution Width 14.9 % (11.5-14.5) H Platelet Count 215 x10^3/uL (140-400) Neutrophils (%) (Auto) 63 % (31-73) Lymphocytes (%) (Auto) 28 % (24-48) Monocytes (%) (Auto) 6 % (0-9) Eosinophils (%) (Auto) 2 % (0-3) Basophils (%) (Auto) 1 % (0-3) Neutrophils # (Auto) 4.3 x10^3/uL (1.8-7.7) Lymphocytes # (Auto) 1.9 x10^3/uL (1.0-4.8) Monocytes # (Auto) 0.4 x10^3/uL (0.0-1.1) Eosinophils # (Auto) 0.1 x10^3/uL (0.0-0.7) Basophils # (Auto) 0.1 x10^3/uL (0.0-0.2) D-Dimer (Camilla) 0.44 ug/mlFEU (0.00-0.50) Sodium Level 140 mmol/L (136-145) 141 mmol/L (136-145) Potassium Level 3.4 mmol/L (3.5-5.1) L 3.8 mmol/L (3.5-5.1) Chloride Level 103 mmol/L (98-107) 105 mmol/L (98-107) Carbon Dioxide Level 30 mmol/L (21-32) 27 mmol/L (21-32) Anion Gap 7 (6-14) 9 (6-14) Blood Urea Nitrogen 11 mg/dL (8-26) 15 mg/dL (8-26) Creatinine 1.2 mg/dL (0.7-1.3) 1.1 mg/dL (0.7-1.3) Estimated GFR (Cockcroft-Gault) 76.1 84.1 BUN/Creatinine Ratio 9 (6-20) Glucose Level 97 mg/dL (70-99) 99 mg/dL (70-99) Calcium Level 9.3 mg/dL (8.5-10.1) 8.9 mg/dL (8.5-10.1) Magnesium Level 2.3 mg/dL (1.8-2.4) Total Bilirubin 0.5 mg/dL (0.2-1.0) Aspartate Amino Transferase (AST) 20 U/L (15-37) Alanine Aminotransferase (ALT) 22 U/L (16-63) Alkaline Phosphatase 69 U/L (46-116) Creatine Kinase 248 U/L (39-308) Creatine Kinase MB (Mass) 1.8 ng/mL (0.0-3.6) Creatine Kinase MB Relative Index 0.7 % (0-4) Troponin I Quantitative < 0.017 ng/mL (0.000-0.055) < 0.017 ng/mL (0.000-0.055) < 0.017 ng/mL (0.000-0.055) AM-Ubc-I-Type Natriuretic Peptide 294 pg/mL (0-124) H Total Protein 7.8 g/dL (6.4-8.2) Albumin 3.7 g/dL (3.4-5.0) Albumin/Globulin Ratio 0.9 (1.0-1.7) L Lipase 64 U/L (73-393) L Urine Collection Type Void Urine Color Yellow Urine Clarity Clear Urine pH 6.0 (<5.0-8.0) Urine Specific [place] 1.020 (1.000-1.030) Urine Protein Negative mg/dL (NEG-TRACE) Urine Glucose (UA) Negative mg/dL (NEG) Urine Ketones (Stick) Negative mg/dL (NEG) Urine Blood Negative (NEG) Urine Nitrite Negative (NEG) Urine Bilirubin Negative (NEG) Urine Urobilinogen Dipstick 1.0 mg/dL (0.2 mg/dL) Urine Leukocyte Esterase Negative (NEG) Urine RBC 0 /HPF (0-2) Urine WBC 1-4 /HPF (0-4) Urine Squamous Epithelial Cells Occ /LPF Urine Bacteria Few /HPF (0-FEW) Urine Mucus Marked /LPF Triglycerides Level 81 mg/dL (0-150) Cholesterol Level 233 mg/dL (0-200) H LDL Cholesterol, Calculated 162 mg/dL (0-100) H VLDL Cholesterol, Calculated 16 mg/dL (0-40) Non-HDL Cholesterol Calculated 178 mg/dL (0-129) H HDL Cholesterol 55 mg/dL (40-60) Cholesterol/HDL Ratio 4.2 Laboratory Tests 05/30/20 18:15 Laboratory Tests 05/30/20 18:15 05/31/20 05:57 ECHOCARDIOGRAM ECHOCARDIOGRAM <Conclusion> The left ventricle is of a normal size with normal systolic function. The ejection fraction is 60-70%. There is a Grade I diastolic dysfunction. There is no evidence of significant pericardial effusion. There is no significant mitral stenosis or regurgitation. The left atrium is of a normal size. The aortic valve is tricuspid. The valve leaflets are not thickened. There is no aortic stenosis or regurgitation. The right ventricle is of a normal size with normal systolic function. Doppler and Color Flow revealed trace to mild tricuspid regurgitation. The PA pressure was estimated at 27 mmHg. The right atrium and in the inferior vena cava is of normal size. The pulmonic valve is normal. DATE: 04/10/15 1607 ASSESSMENT/PLAN ASSESSMENT/PLAN 1. Atypical CP: suspect MSK 2. HTN urgency: last BP meds taken 1.5 yrs ago 3. Hx of angioedema with NSAIDS: unable to ascertain if pt was on lisinopril in the past citing side effect from previous BP med 4. DLP 5. Family hx of CAD Recommendations 1. Agree with norvasc. hypokalemia issues with HCTZ in the past. EKG noted with LVH. Will start on coreg instead. 2. DASH diet, dietitian consult. Discussed marijuana cessation. HBPM bid for the next week and to call if remains outside parameters 3. TTE, TSH. 4. Will start on statin. 5. Follow up with Dr. Petty on July 05 1:30 6. Plan for treadmill MPI in 1-2 weeks NIGEL PETTY MD 05/31/20 1847: CARDIAC CONSULT ASSESSMENT/PLAN ASSESSMENT/PLAN Patient seen and examined. Agree with ENGINEERING PROGRAM ANALYST's assessment and plan. CP with atypical features and most probably musculoskeletal, currently resolved NV ruled out. BP better controlled. 2D echo showed normal LV systolic function without any WMA Plan ischemic evaluation as outpatient Thank you for your consultation ELENA TREVIÑO APRN May 31, 2020 10:32 NIGEL PETTY MD May 31, 2020 18:47
[2020-05-31 11:00] VITALS: BP 179/116
[2020-05-31] MEDS ORDERED: ISOSORBIDE MONONITRATE ER 30 MG TAB.ER.24H PO SCH (11:30)
[2020-05-31] MEDS ORDERED: CARVEDILOL 6.25 MG TABLET. PO SCH (11:45)
--- NOTE | 2020-05-31 11:50 | PDOC ---
[employer] PROGRESS NOTE Date of Service DOS: DATE: 05/31/20 TIME: 11:49 Chief Complaint Chief Complaint A/P: Chest pain - from hypertensive crisis, likely. D dimer r/o PE, no concern for aortic dissection. Will trend troponins, maintain telemetry. Cardiology consulted. Hypertensive emergency - with anginal symptoms, Will restart amlodipine, add hydralazine, prn labetalol Hypokalemia - will replace Headache - likely due to hypertensive emergency, worsened by nitrates FEN - Cardiac diet PPX - ambulatory FULL CODE Dispo - inpatient for hypertensive emergency with life-threateningly high diastolic BP requiring IV medication History of Present Illness History of Present Illness Mr Sanford is a 55 yo male w/ PMHx HTN coming to ED accompanied by his c/o central, substernal chest pain starting 05/29/20 in the middle of the day. He did think it was food related, but it returned long after mealtime and he did have some associated nausea and headache. Pain did not radiate, is described as a pressure sensation and he has not been able to find relief, but nothing worsens it either. 7/10, mostly constant now. He did have relief in ED after NTG and ASA administration, though his headache worsened. He denies any nausea, vomiting, diarrhea, abdominal pain, fever, cough, shortness of breath, diaphoresis, dizziness, or recent sick contacts. Previously he was taking lisinopril and HCTZ, but he has not been taking his blood pressure medication for over a year due to insurance and employment change. EKG NSR with rate 74, no STEMI, BP 211/123. Labs with CBC within normal limits, troponin 0, d dimer 0.44 (negative). K 3.4, Na 140, Cr 1.2, BUN 11, glucose 97 Admitted for further treatment of hypertensive crisis. Bp a bit down with amlodipine. To echo today. Chest pain resolved. Vitals/I&O Vitals/I&O: Vital Signs Date Time Temp Pulse Resp B/P (MAP) Pulse Ox O2 Delivery O2 Flow Rate FiO2 05/31/20 08:59 72 193/113 05/31/20 08:00 Room Air 05/31/20 07:00 98.0 16 98 98.0 I & O 05/30/20 05/30/20 05/31/20 15:00 23:00 07:00 Intake Total 0 ml 100 ml Balance 0 ml 100 ml Physical Exam General: Alert, Oriented X3, Cooperative, No acute distress Heart: Regular rate (SR), Normal S1, Normal S2, No murmurs Abdomen: Soft, No tenderness Extremities: No cyanosis, No edema Skin: No breakdown, No significant lesion Labs Labs: Laboratory Tests Test 05/30/20 18:15 05/30/20 18:20 05/30/20 23:40 05/31/20 05:57 White Blood Count 6.8 x10^3/uL (4.0-11.0) Red Blood Count 5.33 x10^6/uL (4.30-5.70) Hemoglobin 14.7 g/dL (13.0-17.5) Hematocrit 44.6 % (39.0-53.0) Mean Corpuscular Volume 84 fL (79-100) Mean Corpuscular Hemoglobin 28 pg (25-35) Mean Corpuscular Hemoglobin Concent 33 g/dL (31-37) Red Cell Distribution Width 14.9 % (11.5-14.5) Platelet Count 215 x10^3/uL (140-400) Neutrophils (%) (Auto) 63 % (31-73) Lymphocytes (%) (Auto) 28 % (24-48) Monocytes (%) (Auto) 6 % (0-9) Eosinophils (%) (Auto) 2 % (0-3) Basophils (%) (Auto) 1 % (0-3) Neutrophils # (Auto) 4.3 x10^3/uL (1.8-7.7) Lymphocytes # (Auto) 1.9 x10^3/uL (1.0-4.8) Monocytes # (Auto) 0.4 x10^3/uL (0.0-1.1) Eosinophils # (Auto) 0.1 x10^3/uL (0.0-0.7) Basophils # (Auto) 0.1 x10^3/uL (0.0-0.2) D-Dimer (Camilla) 0.44 ug/mlFEU (0.00-0.50) Sodium Level 140 mmol/L (136-145) 141 mmol/L (136-145) Potassium Level 3.4 mmol/L (3.5-5.1) 3.8 mmol/L (3.5-5.1) Chloride Level 103 mmol/L (98-107) 105 mmol/L (98-107) Carbon Dioxide Level 30 mmol/L (21-32) 27 mmol/L (21-32) Anion Gap 7 (6-14) 9 (6-14) Blood Urea Nitrogen 11 mg/dL (8-26) 15 mg/dL (8-26) Creatinine 1.2 mg/dL (0.7-1.3) 1.1 mg/dL (0.7-1.3) Estimated GFR (Cockcroft-Gault) 76.1 84.1 BUN/Creatinine Ratio 9 (6-20) Glucose Level 97 mg/dL (70-99) 99 mg/dL (70-99) Calcium Level 9.3 mg/dL (8.5-10.1) 8.9 mg/dL (8.5-10.1) Magnesium Level 2.3 mg/dL (1.8-2.4) Total Bilirubin 0.5 mg/dL (0.2-1.0) Aspartate Amino Transf (AST/SGOT) 20 U/L (15-37) Alanine Aminotransferase (ALT/SGPT) 22 U/L (16-63) Alkaline Phosphatase 69 U/L (46-116) Creatine Kinase 248 U/L (39-308) Creatine Kinase MB (Mass) 1.8 ng/mL (0.0-3.6) Creatine Kinase MB Relative Index 0.7 % (0-4) Troponin I Quantitative < 0.017 ng/mL (0.000-0.055) < 0.017 ng/mL (0.000-0.055) < 0.017 ng/mL (0.000-0.055) JO-Qvj-F-Type Natriuretic Peptide 294 pg/mL (0-124) Total Protein 7.8 g/dL (6.4-8.2) Albumin 3.7 g/dL (3.4-5.0) Albumin/Globulin Ratio 0.9 (1.0-1.7) Lipase 64 U/L (73-393) Urine Collection Type Void Urine Color Yellow Urine Clarity Clear Urine pH 6.0 (<5.0-8.0) Urine Specific [place] 1.020 (1.000-1.030) Urine Protein Negative mg/dL (NEG-TRACE) Urine Glucose (UA) Negative mg/dL (NEG) Urine Ketones (Stick) Negative mg/dL (NEG) Urine Blood Negative (NEG) Urine Nitrite Negative (NEG) Urine Bilirubin Negative (NEG) Urine Urobilinogen Dipstick 1.0 mg/dL (0.2 mg/dL) Urine Leukocyte Esterase Negative (NEG) Urine RBC 0 /HPF (0-2) Urine WBC 1-4 /HPF (0-4) Urine Squamous Epithelial Cells Occ /LPF Urine Bacteria Few /HPF (0-FEW) Urine Mucus Marked /LPF Triglycerides Level 81 mg/dL (0-150) Cholesterol Level 233 mg/dL (0-200) LDL Cholesterol, Calculated 162 mg/dL (0-100) VLDL Cholesterol, Calculated 16 mg/dL (0-40) Non-HDL Cholesterol Calculated 178 mg/dL (0-129) HDL Cholesterol 55 mg/dL (40-60) Cholesterol/HDL Ratio 4.2 Thyroid Stimulating Hormone (TSH) 0.940 uIU/mL (0.358-3.74) Assessment and Plan Assessmemt and Plan Problems Medical Problems: (1) Chest pain Status: Acute Comment Review of Relevant I have reviewed the following items charles (where applicable) has been applied. Medications: Current Medications Medications (Trade) Dose Ordered Sig/Susu Route PRN Reason Start Time Stop Time Status Last Admin Dose Admin Nitroglycerin (Nitrostat) 0.4 mg PRN Q5MIN PRN SL CHEST PAIN 05/30/20 18:30 05/30/20 19:05 Aspirin (Vivek Aspirin) 325 mg 1X ONCE PO 05/30/20 19:00 05/30/20 19:01 DC 05/30/20 18:47 Hydralazine HCl (Apresoline Inj) 10 mg 1X ONCE IVP 05/30/20 20:00 05/30/20 20:01 DC 05/30/20 20:01 Amlodipine Besylate (Norvasc) 10 mg DAILY PO 05/31/20 09:00 05/31/20 08:59 Hydralazine HCl (Apresoline) 25 mg TID PO 05/30/20 22:00 05/31/20 10:28 DC 05/31/20 08:58 Labetalol HCl (Normodyne Iv Push) 10 mg PRN Q2HR PRN IVP HYPERTENSION-1ST CHOICE 05/30/20 22:00 05/31/20 03:11 Aspirin (Vivek Aspirin) 325 mg DAILYWBKFT PO 05/31/20 08:00 05/31/20 08:56 Potassium Bicarbonate (Potassium Effervescent Tablet) 20 meq 1X ONCE PO 05/30/20 22:45 05/30/20 22:46 DC 05/30/20 23:08 Justifications for Admission Chest Pain Indications Hemodynamically unstable?: Yes Justification for admission: Patient hemodynamically unstable as indicated by persistent orthostatic vital signs changes ie fall of SBP of 20 mmHg or more OR fall in DBP of 10mmHg or more, 1 to 3 minutes after patient sits/stands from recumbent position. Other Justification TRINA BRICE MD May 31, 2020 11:50
--- NOTE | 2020-05-31 13:09 | NUR ---
SS following for discharge planning. SS reviewed pt chart and discussed with pt RN. Pt is from home and is currently on room air. Cardiology following. Discharge plan is to home when medically ready. SS will continue to follow for discharge planning.
[2020-05-31 14:46] VITALS: BP 158/96
[2020-05-31] MEDS ORDERED: SILD100T PO ×2 (14:48→15:09)
[2020-05-31] MEDS ORDERED: ATOR20TA58 PO (14:48)
[2020-05-31] MEDS ORDERED: AMLO-187 PO (14:48)
[2020-05-31] MEDS ORDERED: CARV6.2511 PO (14:48)
--- NOTE | 2020-05-31 14:54 | PDOC3 ---
Discharge Summary Visit Information Date of Admission: May 30, 2020 Date of Discharge: May 31, 2020 Admitting Diagnosis: Chest pain, HTN emergency Final Diagnosis Problems Medical Problems: (1) Chest pain Status: Acute Brief Hospital Course Allergies Allergies Coded Allergies Type Severity Reaction Last Updated Verified lisinopril Allergy Severe Swelling 05/31/20 Yes ibuprofen Allergy Intermediate rash 04/09/15 Yes Vital Signs Vital Signs Date Time Temp Pulse Resp B/P (MAP) Pulse Ox O2 Delivery O2 Flow Rate FiO2 05/31/20 14:46 98.0 67 16 158/96 (116) 98 Room Air 98.0 Lab Results Laboratory Tests Test 05/30/20 18:15 05/30/20 18:20 05/30/20 23:40 05/31/20 05:57 White Blood Count 6.8 x10^3/uL (4.0-11.0) Red Blood Count 5.33 x10^6/uL (4.30-5.70) Hemoglobin 14.7 g/dL (13.0-17.5) Hematocrit 44.6 % (39.0-53.0) Mean Corpuscular Volume 84 fL (79-100) Mean Corpuscular Hemoglobin 28 pg (25-35) Mean Corpuscular Hemoglobin Concent 33 g/dL (31-37) Red Cell Distribution Width 14.9 % (11.5-14.5) Platelet Count 215 x10^3/uL (140-400) Neutrophils (%) (Auto) 63 % (31-73) Lymphocytes (%) (Auto) 28 % (24-48) Monocytes (%) (Auto) 6 % (0-9) Eosinophils (%) (Auto) 2 % (0-3) Basophils (%) (Auto) 1 % (0-3) Neutrophils # (Auto) 4.3 x10^3/uL (1.8-7.7) Lymphocytes # (Auto) 1.9 x10^3/uL (1.0-4.8) Monocytes # (Auto) 0.4 x10^3/uL (0.0-1.1) Eosinophils # (Auto) 0.1 x10^3/uL (0.0-0.7) Basophils # (Auto) 0.1 x10^3/uL (0.0-0.2) D-Dimer (Camilla) 0.44 ug/mlFEU (0.00-0.50) Sodium Level 140 mmol/L (136-145) 141 mmol/L (136-145) Potassium Level 3.4 mmol/L (3.5-5.1) 3.8 mmol/L (3.5-5.1) Chloride Level 103 mmol/L (98-107) 105 mmol/L (98-107) Carbon Dioxide Level 30 mmol/L (21-32) 27 mmol/L (21-32) Anion Gap 7 (6-14) 9 (6-14) Blood Urea Nitrogen 11 mg/dL (8-26) 15 mg/dL (8-26) Creatinine 1.2 mg/dL (0.7-1.3) 1.1 mg/dL (0.7-1.3) Estimated GFR (Cockcroft-Gault) 76.1 84.1 BUN/Creatinine Ratio 9 (6-20) Glucose Level 97 mg/dL (70-99) 99 mg/dL (70-99) Calcium Level 9.3 mg/dL (8.5-10.1) 8.9 mg/dL (8.5-10.1) Magnesium Level 2.3 mg/dL (1.8-2.4) Total Bilirubin 0.5 mg/dL (0.2-1.0) Aspartate Amino Transf (AST/SGOT) 20 U/L (15-37) Alanine Aminotransferase (ALT/SGPT) 22 U/L (16-63) Alkaline Phosphatase 69 U/L (46-116) Creatine Kinase 248 U/L (39-308) Creatine Kinase MB (Mass) 1.8 ng/mL (0.0-3.6) Creatine Kinase MB Relative Index 0.7 % (0-4) Troponin I Quantitative < 0.017 ng/mL (0.000-0.055) < 0.017 ng/mL (0.000-0.055) < 0.017 ng/mL (0.000-0.055) RB-Efe-W-Type Natriuretic Peptide 294 pg/mL (0-124) Total Protein 7.8 g/dL (6.4-8.2) Albumin 3.7 g/dL (3.4-5.0) Albumin/Globulin Ratio 0.9 (1.0-1.7) Lipase 64 U/L (73-393) Urine Collection Type Void Urine Color Yellow Urine Clarity Clear Urine pH 6.0 (<5.0-8.0) Urine Specific [place] 1.020 (1.000-1.030) Urine Protein Negative mg/dL (NEG-TRACE) Urine Glucose (UA) Negative mg/dL (NEG) Urine Ketones (Stick) Negative mg/dL (NEG) Urine Blood Negative (NEG) Urine Nitrite Negative (NEG) Urine Bilirubin Negative (NEG) Urine Urobilinogen Dipstick 1.0 mg/dL (0.2 mg/dL) Urine Leukocyte Esterase Negative (NEG) Urine RBC 0 /HPF (0-2) Urine WBC 1-4 /HPF (0-4) Urine Squamous Epithelial Cells Occ /LPF Urine Bacteria Few /HPF (0-FEW) Urine Mucus Marked /LPF Triglycerides Level 81 mg/dL (0-150) Cholesterol Level 233 mg/dL (0-200) LDL Cholesterol, Calculated 162 mg/dL (0-100) VLDL Cholesterol, Calculated 16 mg/dL (0-40) Non-HDL Cholesterol Calculated 178 mg/dL (0-129) HDL Cholesterol 55 mg/dL (40-60) Cholesterol/HDL Ratio 4.2 Thyroid Stimulating Hormone (TSH) 0.940 uIU/mL (0.358-3.74) Test 05/31/20 11:45 Troponin I Quantitative < 0.017 ng/mL (0.000-0.055) Laboratory Tests Test 05/30/20 18:15 05/30/20 18:20 05/30/20 23:40 05/31/20 05:57 White Blood Count 6.8 x10^3/uL (4.0-11.0) Red Blood Count 5.33 x10^6/uL (4.30-5.70) Hemoglobin 14.7 g/dL (13.0-17.5) Hematocrit 44.6 % (39.0-53.0) Mean Corpuscular Volume 84 fL (79-100) Mean Corpuscular Hemoglobin 28 pg (25-35) Mean Corpuscular Hemoglobin Concent 33 g/dL (31-37) Red Cell Distribution Width 14.9 % (11.5-14.5) Platelet Count 215 x10^3/uL (140-400) Neutrophils (%) (Auto) 63 % (31-73) Lymphocytes (%) (Auto) 28 % (24-48) Monocytes (%) (Auto) 6 % (0-9) Eosinophils (%) (Auto) 2 % (0-3) Basophils (%) (Auto) 1 % (0-3) Neutrophils # (Auto) 4.3 x10^3/uL (1.8-7.7) Lymphocytes # (Auto) 1.9 x10^3/uL (1.0-4.8) Monocytes # (Auto) 0.4 x10^3/uL (0.0-1.1) Eosinophils # (Auto) 0.1 x10^3/uL (0.0-0.7) Basophils # (Auto) 0.1 x10^3/uL (0.0-0.2) D-Dimer (Camilla) 0.44 ug/mlFEU (0.00-0.50) Sodium Level 140 mmol/L (136-145) 141 mmol/L (136-145) Potassium Level 3.4 mmol/L (3.5-5.1) 3.8 mmol/L (3.5-5.1) Chloride Level 103 mmol/L (98-107) 105 mmol/L (98-107) Carbon Dioxide Level 30 mmol/L (21-32) 27 mmol/L (21-32) Anion Gap 7 (6-14) 9 (6-14) Blood Urea Nitrogen 11 mg/dL (8-26) 15 mg/dL (8-26) Creatinine 1.2 mg/dL (0.7-1.3) 1.1 mg/dL (0.7-1.3) Estimated GFR (Cockcroft-Gault) 76.1 84.1 BUN/Creatinine Ratio 9 (6-20) Glucose Level 97 mg/dL (70-99) 99 mg/dL (70-99) Calcium Level 9.3 mg/dL (8.5-10.1) 8.9 mg/dL (8.5-10.1) Magnesium Level 2.3 mg/dL (1.8-2.4) Total Bilirubin 0.5 mg/dL (0.2-1.0) Aspartate Amino Transf (AST/SGOT) 20 U/L (15-37) Alanine Aminotransferase (ALT/SGPT) 22 U/L (16-63) Alkaline Phosphatase 69 U/L (46-116) Creatine Kinase 248 U/L (39-308) Creatine Kinase MB (Mass) 1.8 ng/mL (0.0-3.6) Creatine Kinase MB Relative Index 0.7 % (0-4) Troponin I Quantitative < 0.017 ng/mL (0.000-0.055) < 0.017 ng/mL (0.000-0.055) < 0.017 ng/mL (0.000-0.055) NG-Fft-Y-Type Natriuretic Peptide 294 pg/mL (0-124) Total Protein 7.8 g/dL (6.4-8.2) Albumin 3.7 g/dL (3.4-5.0) Albumin/Globulin Ratio 0.9 (1.0-1.7) Lipase 64 U/L (73-393) Urine Collection Type Void Urine Color Yellow Urine Clarity Clear Urine pH 6.0 (<5.0-8.0) Urine Specific [place] 1.020 (1.000-1.030) Urine Protein Negative mg/dL (NEG-TRACE) Urine Glucose (UA) Negative mg/dL (NEG) Urine Ketones (Stick) Negative mg/dL (NEG) Urine Blood Negative (NEG) Urine Nitrite Negative (NEG) Urine Bilirubin Negative (NEG) Urine Urobilinogen Dipstick 1.0 mg/dL (0.2 mg/dL) Urine Leukocyte Esterase Negative (NEG) Urine RBC 0 /HPF (0-2) Urine WBC 1-4 /HPF (0-4) Urine Squamous Epithelial Cells Occ /LPF Urine Bacteria Few /HPF (0-FEW) Urine Mucus Marked /LPF Triglycerides Level 81 mg/dL (0-150) Cholesterol Level 233 mg/dL (0-200) LDL Cholesterol, Calculated 162 mg/dL (0-100) VLDL Cholesterol, Calculated 16 mg/dL (0-40) Non-HDL Cholesterol Calculated 178 mg/dL (0-129) HDL Cholesterol 55 mg/dL (40-60) Cholesterol/HDL Ratio 4.2 Thyroid Stimulating Hormone (TSH) 0.940 uIU/mL (0.358-3.74) Test 05/31/20 11:45 Troponin I Quantitative < 0.017 ng/mL (0.000-0.055) Brief Hospital Course Mr Sanford is a 55 yo male w/ PMHx HTN coming to ED accompanied by his c/o central, substernal chest pain starting 05/29/20 in the middle of the day. He did think it was food related, but it returned long after mealtime and he did have some associated nausea and headache. Pain did not radiate, is described as a pressure sensation and he has not been able to find relief, but nothing worsens it either. 11/03, mostly constant now. He did have relief in ED after NTG and ASA administration, though his headache worsened. He denies any nausea, vomiting, diarrhea, abdominal pain, fever, cough, shortness of breath, diaphoresis, dizziness, or recent sick contacts. Previously he was taking lisinopril and HCTZ, but he has not been taking his blood pressure medication for over a year due to insurance and employment change. EKG NSR with rate 74, no STEMI, BP 211/123. Labs with CBC within normal limits, troponin 0, d dimer 0.44 (negative). K 3.4, Na 140, Cr 1.2, BUN 11, glucose 97 Admitted for further treatment of hypertensive crisis. Bp a bit down with amlodipine. To echo today with left ventricular wall thickening. Chest pain resolved. Started on carvedilol in addition to amlodipine. Has outpatient cardiology f/u scheduled. He will establish outpatient primary care given multiple primary care physicians in the local area. All questions answered to the best my abilities. He is also being given a prescription of sildenafil in the event that the beta-jose causes erectile dysfunction. He fully discloses that previously antihypertensives did interfere with his ability to maintain and achieve an erection. Consults: Cardiology Problem list: Chest pain - from hypertensive crisis, likely. D dimer r/o PE, no concern for aortic dissection. resolved with BP control Hypertensive emergency - with anginal symptoms, Will restart amlodipine, add carvedilol Hypokalemia - replaced Headache - likely due to hypertensive emergency, worsened by nitrates Greater than 30 minutes spent on d/c home with self care Discharge Information Condition at Discharge: Improved Follow Up: Weeks (1) Disposition/Orders: D/C to Home Scheduled Amlodipine Besylate (Amlodipine Besylate) 10 Mg Tablet, 10 MG PO DAILY for HTN for 30 Days, #30 Ref 3 Prescribed by: TRINA BRICE MD on 05/31/20 1448 Atorvastatin Calcium (Atorvastatin Calcium) 20 Mg Tablet, 20 MG PO QHS for Cholesterol for 30 Days, #30 Ref 3 Prescribed by: TRINA BRICE MD on 05/31/20 1448 Carvedilol (Carvedilol ) 6.25 Mg Tablet, 6.25 MG PO BIDWMEALS for HTN for 30 Days, #60 Ref 3 Prescribed by: TRINA BRICE MD on 05/31/20 1448 Sildenafil Citrate (Viagra) 100 Mg Tablet, 1 TAB PO PRN DAILY for ED of organic origin for 30 Days, #9 Ref 11 Prescribed by: TRINA BRICE MD on 05/31/20 1448 Discontinued Medications Cefdinir (Cefdinir) 300 Mg Capsule, 1 CAP PO BID for 10 Days, #20 Prescribed by: DEBBIE OLIVA D.O. on 10/04/19 1437 Justicifation of Admission Dx: Justifications for Admission: Justification of Admission Dx: Yes CHF: Hemodynamic Instability TRINA BRICE MD May 31, 2020 14:54
--- NOTE | 2020-05-31 15:22 | CARD ---
MR#: [id number] Date of Study: 05/31/2020 Ordering Physician: ELENA TREVIÑO, Referring Physician: ELENA TREVIÑO Tech: Gladis Cui [facility] APPROVED REPORT EXAM: Two-dimensional and M-mode echocardiogram with Doppler and color Doppler. Other Information Quality : AverageHR: 71bpm Rhythm : NSR INDICATION Hypertension/HCVD Chest Pain 2D DIMENSIONS RVDd3.1 (2.9-3.5cm)Left Atrium(2D)3.1 (1.6-4.0cm) IVSd1.7 (0.7-1.1cm)Aortic Root(2D)4.0 (2.0-3.7cm) LVDd3.7 (3.9-5.9cm)LVOT Diameter2.4 (1.8-2.4cm) PWd1.7 (0.7-1.1cm)LVDs1.7 (2.5-4.0cm) FS (%) 54.5 %SV50.8 ml LVEF(%)85.9 (>50%) Aortic Valve AoV Peak Neri.154.9cm/sAoV VTI30.1cm AO Peak GR.9.6mmHgLVOT Peak Neri.144.4cm/s AO Mean GR.4mmHgAVA (VMAX)4.39cm2 Mitral Valve MV E Ejszjgfv76.7cm/sMV E Peak Gr.10mmHg MV DECEL [id number] A Zjkrakqx08.1cm/s MV E Mean Gr.5mmHgE/A Ratio0.8 Pulmonary Valve PV Peak Jveotfoj027.8cm/s Pulmonary Vein S1 Pznpbzij77.6cm/sD2 Nxyqnocx99.0cm/s PVa [id number] LEFT VENTRICLE The left ventricle is normal size. There is moderate to severe concentric left ventricular hypertroph y. The left ventricular systolic function is normal and the ejection fraction is within normal range. Estimated ejection fraction 55-60%. There is normal LV segmental wall motion. Transmitral Doppler fl ow pattern is Grade I-abnormal relaxation pattern. RIGHT VENTRICLE The right ventricle is normal size. The right ventricle is mildly hypertrophied. The right ventricula r systolic function is normal. ATRIA The left atrium size is normal. The right atrium size is normal. The interatrial septum is intact wit h no evidence for an atrial septal defect or patent foramen ovale as noted on 2-D or Doppler imaging. AORTIC VALVE The aortic valve is normal in structure and function. Doppler and Color Flow revealed no significant aortic regurgitation. There is no significant aortic valvular stenosis. MITRAL VALVE The mitral valve is normal in structure and function. There is no evidence of mitral valve prolapse. There is no mitral valve stenosis. Doppler and Color Flow revealed no mitral valve regurgitation note d. TRICUSPID VALVE The tricuspid valve is normal in structure and function. Doppler and Color Flow revealed no tricuspid valve regurgitation noted. There is no tricuspid valve prolapse or vegetation. PULMONIC VALVE Doppler and Color Flow revealed trace pulmonic valvular regurgitation. There is no pulmonic valvular stenosis. GREAT VESSELS The aortic root is mildly enlarged. The ascending aorta is Mildly dilated at 3.8 cm. The IVC is baron l in size and collapses >50% with inspiration. PERICARDIAL EFFUSION There is no evidence of significant pericardial effusion. Critical Notification Critical Value: No <Conclusion> The left ventricular systolic function is normal and the ejection fraction is within normal range. E stimated ejection fraction 55-60%. There is normal LV segmental wall motion. The ascending aorta is Mildly dilated at 3.8 cm. Signed by : Guillaume Ann, Electronically Approved : 05/31/2020 15:22:25
--- NOTE | 2020-05-31 16:53 | NUR ---
Discharge Note: ADAM CEJA MANAKIN SABOT Discharge instructions and discharge home medications reviewed with Patient and a copy given. All questions have been answered and understanding verbalized. The following instructions and handouts were given: medication education, follow up appointments, stress test appointment, hypertensiton education. Discontinued lines and drains: peripheral IV discontinued Patient discharged to home with self via ambulation. Patient received discharge papers and packet but left without signing papers accidental oversight
[2020-05-31] MEDS ORDERED: ATORVASTATIN CALCIUM 20 MG TABLET PO SCH (21:00)
[2020-06-01] MEDS ORDERED: hydroCHLOROthiazide 25 MG TABLET PO SCH (09:00)
== END 2020-05-31 16:30 | disposition home or self-care (01) ==
LOC: ER 17:17 → 2 NORTH 19:20 → INTOOBSV 22:23 → OBSVTOIN 22:23
PROVIDERS: ADMIT Internal Medicine; ATTEND Internal Medicine
DX: R07.89 Other chest pain (principal); I16.1 Hypertensive emergency; E87.6 Hypokalemia; R51.9 Headache, unspecified; F12.90 Cannabis use, unspecified, uncomplicated; Z79.82 Long term (current) use of aspirin; Z87.891 Personal history of nicotine dependence; Z91.14 Patient's other noncompliance with medication regimen
CPT/HCPCS: 36415; 71045; 80048; 80053; 80061; 81001; 82553; 83690; 83735; 83880; 84443; 84484; 85025; 85379; 93005; 93306; 96374; 96375; 99285; G0378; J0360; J3490; G0379